=== PATIENT | male | born 1950 | race Caucasian/White ===

== ENCOUNTER 2017-11-18 07:28 | Outpatient (CLI) | payer MEDICARE ==
[2017-11-18 09:27] LABS: ALBUMIN/GLOBULIN RATIO 1.4 (1.0-2.2); BASOPHILS % (AUTO) 0.7 %; BILIRUBIN,TOTAL 0.9 mg/dL (0.2-1.0); CALCIUM 8.6 mg/dL (8.5-10.3); CREATININE 0.9 mg/dL (0.6-1.2); EOSINOPHILS # (AUTO) 0.1 10^3/uL (0.0-0.7); EOSINOPHILS % (AUTO) 1.6 %; HGB - HEMOGLOBIN 14.8 g/dL (14.0-18.0); LYMPHOCYTES # (AUTO) 1.6 10^3/uL (1.5-3.5); LYMPHOCYTES % (AUTO) 25.4 %; MEAN CORPUSCULAR HEMOGLOBIN 31.9 pg (27.0-31.0); MEAN CORPUSCULAR HGB CONC 34.1 g/dL (32.0-36.0); MEAN CORPUSCULAR VOLUME 93.3 fL (80.0-94.0); MEAN PLATELET VOLUME 7.7 fL (7.4-11.4); MONOCYTES # (AUTO) 0.6 10^3/uL (0.0-1.0); MONOCYTES % (AUTO) 9.4 %; NEUTROPHILS # (AUTO) 3.9 10^3/uL (1.5-6.6); NEUTROPHILS % (AUTO) 62.9 %; PLT - PLATELET COUNT 187 10^3/uL (130-450); RED BLOOD COUNT 4.66 10^6/uL (4.70-6.10); RED CELL DISTRIBUTION WIDTH 14.1 % (12.0-15.0); TOTAL PROTEIN 6.8 g/dL (6.7-8.2); WHITE BLOOD COUNT 6.3 x10^3/uL (4.8-10.8)
[2017-11-18 10:04] LABS: THYROID STIMULATING HORMONE 2.14 uIU/mL (0.34-5.60)
[2017-11-18 10:08] LABS: FREE T4 (FREE THYROXINE) 0.8 ng/dL (0.58-1.64)
[2017-11-18 15:28] LABS: BILIRUBIN,URINE NEGATIVE (NEGATIVE); GLUCOSE, URINE (UA) NEGATIVE (NEGATIVE); KETONES,URINE (UA) NEGATIVE (NEGATIVE); LEUKOCYTE ESTERASE, URINE NEGATIVE (NEGATIVE); NITRITE,URINE NEGATIVE (NEGATIVE); OCCULT BLOOD,URINE NEGATIVE (NEGATIVE); PH,URINE 5.5 PH (5.0-7.5); PROTEIN,URINE TRACE mg/dL (NEGATIVE); UROBILINOGEN,URINE 0.2 (NORMAL) E.U./dL (NORMAL)
[2017-11-18 15:30] LABS: CLARITY,URINE CLEAR (CLEAR)
== END 2017-11-18 07:29 | disposition home or self-care (01) ==
LOC: RT 07:28
PROVIDERS: ATTEND Internal Medicine Cardiovascular Disease
DX: I10 Essential (primary) hypertension (principal)
CPT/HCPCS: 36415; 80053; 81003; 82088; 82533; 84244; 84439; 84443; 85025; 93005

== ENCOUNTER 2017-12-16 07:38 | Outpatient (CLI) | payer MEDICARE ==
[2017-12-16 08:29] LABS: CALCIUM 9.2 mg/dL (8.5-10.3); CREATININE 0.9 mg/dL (0.6-1.2)
== END 2017-12-16 07:39 | disposition home or self-care (01) ==
LOC: LAB 07:38
PROVIDERS: ATTEND Internal Medicine Cardiovascular Disease
DX: I10 Essential (primary) hypertension (principal)
CPT/HCPCS: 36415; 80048

== ENCOUNTER 2018-01-12 09:42 | Outpatient (CLI) | payer MEDICARE ==
[2018-01-12 11:01] LABS: BUN - BLOOD UREA NITROGEN 12 mg/dL (6-20); CALCIUM 8.4 mg/dL (8.5-10.3); CARBON DIOXIDE - CO2 30 mmol/L (21-32); CHLORIDE 104 mmol/L (101-111); CHOL/HDL RATIO 4.1 (<5.0); CHOLESTEROL 172 mg/dL; CREATININE 0.9 mg/dL (0.6-1.2); CRP - C-REACTIVE PROTEIN 1.4 mg/dL (0-1.0); GFR - MDRD 84 (>89); GLUCOSE 130 mg/dL (70-100); HDL CHOLESTEROL 42 mg/dL; LDL CHOLESTEROL,CALCULATED 115 mg/dL; LDL/HDL RATIO 2.7 (<3.6); SODIUM 139 mmol/L (135-145); VLDL CHOLESTEROL 15 mg/dL
== END 2018-01-12 09:43 | disposition home or self-care (01) ==
LOC: LAB 09:42
PROVIDERS: ATTEND Internal Medicine Cardiovascular Disease
DX: I10 Essential (primary) hypertension (principal)
CPT/HCPCS: 36415; 80048; 80061; 81599; 82088; 83721; 83835; 84153; 84244; 86140; 86316

== ENCOUNTER 2018-02-07 09:11 | Outpatient (CLI) | payer MEDICARE, OTHER | END 2018-02-07 09:12 | disposition home or self-care (01) | LOC: DI 09:11 | PROVIDERS: ATTEND Internal Medicine Cardiovascular Disease | DX: I10 Essential (primary) hypertension (principal); I51.7 Cardiomegaly; I77.810 Thoracic aortic ectasia | CPT/HCPCS: 93306 ==

== ENCOUNTER 2018-08-04 09:19 | Outpatient (CLI) | payer MEDICARE, OTHER ==
[2018-08-04 09:41] LABS: CREATININE 0.9 mg/dL (0.6-1.2); URIC ACID 9.2 mg/dL (2.6-7.2)
== END 2018-08-04 09:20 | disposition home or self-care (01) ==
LOC: LAB 09:19
PROVIDERS: ATTEND Internal Medicine Cardiovascular Disease
DX: I10 Essential (primary) hypertension (principal)
CPT/HCPCS: 36415; 80048; 84550

== ENCOUNTER 2018-10-06 09:30 | Outpatient (CLI) | payer MEDICARE, OTHER ==
[2018-10-06 09:53] LABS: CALCIUM 8.7 mg/dL (8.5-10.3); CREATININE 1.1 mg/dL (0.6-1.2)
== END 2018-10-06 09:31 | disposition home or self-care (01) ==
LOC: LAB 09:30
PROVIDERS: ATTEND Internal Medicine Cardiovascular Disease
DX: I10 Essential (primary) hypertension (principal)
CPT/HCPCS: 36415; 80048

== ENCOUNTER 2018-10-25 09:40 | Emergency (ER) | payer MEDICARE, OTHER ==
[2018-10-25 09:54] VITALS: BP 160/87
--- NOTE | 2018-10-25 10:11 | ED Physician Documentation ---
PD HPI LOWER EXT INJURY - Stated complaint Stated Complaint: L FOOT PX - Chief complaint Chief Complaint: Ext Problem - History obtained from History obtained from: Patient - History of Present Illness PD HPI LOW EXT INJURY LOCATION: Left, Ankle Type of injury: Fall, Twist Where injury occurred: Home Timing - onset: How many days ago (2) Timing - duration: Days (2) Timing - details: Abrupt onset, Still present Improved by: Rest, Ice, Immobilization Worsened by: Moving, Palpating Associated symptoms: Swelling Similar symptoms before: Diagnosis (ankle sprain) Recently seen: Not recently seen - Additional information Additional information: 68-year-old male was in the garden working 2 days ago when he stepped in hole and twisted his ankle. He is not able to bear weight on the ankle and he is waited 2 days and continues to be having some difficulty and is come now for x- ray evaluation. Review of Systems Constitutional: denies: Fever Eyes: denies: Decreased vision Nose: denies: Congestion Respiratory: denies: Cough GI: denies: Nausea, Vomiting : denies: Dysuria Skin: denies: Rash Musculoskeletal: reports: Extremity pain, Extremity swelling, Pain with weight bearing. denies: Neck pain, Back pain Neurologic: denies: Generalized weakness, Focal weakness, Numbness PD PAST MEDICAL HISTORY - Present Medications Home Medications: Ambulatory Orders Medication Instructions Recorded Confirmed Apixaban [Eliquis] 5 mg PO 10/25/18 Eplerenone 50 mg PO 10/25/18 Losartan/Hydrochlorothiazide 10/25/18 [Losartan-Hctz 50-12.5 mg Tab] amLODIPine [Norvasc] 5 mg PO DAILY 10/25/18 10/25/18 - Allergies Allergies/Adverse Reactions: Allergies Allergy/AdvReac Type Severity Reaction Status Date / Time ketorolac [From Toradol] Allergy Anaphylaxis Verified 10/25/18 09:55 PD ED PE NORMAL - Vitals Vital signs reviewed: Yes (hypertensive ) - General General: Alert and oriented X 3, No acute distress, Well developed/nourished - HEENT HEENT: Atraumatic, PERRL - Respiratory Respiratory: No respiratory distress - Derm Derm: Normal color, Warm and dry, No rash - Extremities Extremities: Other (There is swelling and point tenderness to the lateral malleolus on the left foot over the talo-fibular ligament. There is no tenderness over the proximal 5th and the distal n/v is intact. ) - Neuro Neuro: Alert and oriented X 3, radiology equipment servicer 2-12 intact, No motor deficit, No sensory deficit, Normal speech Eye Opening: Spontaneous Motor: Obeys Commands Verbal: Oriented GCS Score: 15 - Psych Psych: Normal mood, Normal affect Results - Vitals Vitals: Vital Signs - 24 hr 10/25/18 09:52 Temperature 35.7 C L Heart Rate 71 Respiratory 14 Rate Blood Pressure 160/87 H O2 Saturation 100 Oxygen O2 Source Room air - Rads (name of study) ankle Radiology: Prelim report reviewed (Impression: 1. Anterior and medial left ankle soft tissue swelling. 2 No fracture, subluxation or ankle joint effusion. 3 Plantar and dorsal calcaneal spurs.), EMP read indepedently, See rad report PD MEDICAL DECISION MAKING - ED course Complexity details: reviewed results, re-evaluated patient, considered differential, d/w patient, d/w family ED course: 68-year-old male with a twist of his ankle has talofibular ligament strain and x-ray without evidence of fracture. He is placed into a ankle Aircast. Departure - Departure Disposition: 01 Home, Self Care Clinical Impression: Left ankle sprain Qualifiers: Encounter type: initial encounter Involved ligament of ankle: calcaneofibular ligament Qualified Code(s): S93.412A - Sprain of calcaneofibular ligament of left ankle, initial encounter Instructions: ED Sprain Ankle W X Ray Follow-Up: Lm Rossi MD [Primary Care Provider] -
--- NOTE | 2018-10-25 10:46 | XRAY Report ---
Reason: pain/swelling. injury Procedure Date: 10/25/2018 Accession Number: [id number] / [id number] Procedure: XR - Ankle 3 View LT CPT Code: FULL RESULT: EXAM: LEFT ANKLE RADIOGRAPHY EXAM DATE: 10/25/2018 10:41 AM. CLINICAL HISTORY: Acute left ankle pain and swelling status post trauma. COMPARISON: None. TECHNIQUE: 3 views. FINDINGS: Bones: Normal bone mineralization. No fractures or bone lesions. Plantar and dorsal calcaneal spurs. Joints: Normal. No effusion. No subluxations. The ankle mortise is normally aligned. Soft Tissues: Anterior and medial left ankle soft tissue swelling. IMPRESSION: 1. Anterior and medial left ankle soft tissue swelling. 2. No fracture, subluxation or ankle joint effusion. 3. Plantar and dorsal calcaneal spurs. RADIA
== END 2018-10-25 11:19 | disposition home or self-care (01) ==
LOC: ED 09:40
DX: S93.412A Sprain of calcaneofibular ligament of left ankle, initial encounter (principal); X50.1XXA Overexertion from prolonged static or awkward postures, initial encounter; Y93.H2 Activity, gardening and landscaping; Y92.007 Garden or yard of unspecified non-institutional (private) residence as the place of occurrence of the external cause; M77.32 Calcaneal spur, left foot
CPT/HCPCS: 99283

== ENCOUNTER 2018-11-18 09:01 | Outpatient (CLI) | payer MEDICARE, OTHER ==
[2018-11-18 09:18] LABS: CREATININE 1.2 mg/dL (0.6-1.2)
== END 2018-11-18 09:02 | disposition home or self-care (01) ==
LOC: LAB 09:01
PROVIDERS: ATTEND Internal Medicine Cardiovascular Disease
DX: I10 Essential (primary) hypertension (principal)
CPT/HCPCS: 36415; 80048

== ENCOUNTER 2019-01-04 10:55 | Outpatient (CLI) | payer MEDICARE, OTHER ==
--- NOTE | 2019-01-04 11:34 | XRAY Report ---
Reason: ACUTE PAIN EDEMA X 6DAYS POSTERIOR L CALCANEUS Procedure Date: 01/04/2019 Accession Number: [id number] / [id number] Procedure: XR - Calcaneus LT CPT Code: FULL RESULT: EXAM: LEFT CALCANEUS RADIOGRAPHY EXAM DATE: 01/04/2019 11:03 AM. CLINICAL HISTORY: Left calcaneal pain COMPARISON: ANKLE 3 VIEW LT 10/25/2018 10:25 AM. TECHNIQUE: 2 views. FINDINGS: Bones: No acute bony abnormality. Moderate posterior calcaneal bone spur. Small plantar bone spur. Joints: Normal. No subluxations. Soft Tissues: Normal. No soft tissue swelling. IMPRESSION: 1. No acute abnormality. 2. Calcaneal bone spurs as described above. RADIA
== END 2019-01-04 10:56 | disposition home or self-care (01) ==
LOC: DI 10:55
PROVIDERS: ATTEND Podiatrist
DX: M76.22 Iliac crest spur, left hip (principal)

== ENCOUNTER 2019-02-22 14:14 | Outpatient (CLI) | payer MEDICARE, OTHER ==
[2019-02-22 14:36] LABS: CALCIUM 8.7 mg/dL (8.5-10.3); CREATININE 1.2 mg/dL (0.6-1.2)
== END 2019-02-22 14:15 | disposition home or self-care (01) ==
LOC: LAB 14:14
PROVIDERS: ATTEND Internal Medicine Cardiovascular Disease
DX: I10 Essential (primary) hypertension (principal)
CPT/HCPCS: 36415; 80048

== ENCOUNTER 2019-05-03 10:47 | Outpatient (CLI) | payer MEDICARE, OTHER ==
[2019-05-03 11:42] LABS: CALCIUM 9.2 mg/dL (8.5-10.3); CREATININE 1.2 mg/dL (0.6-1.2)
== END 2019-05-03 10:48 | disposition home or self-care (01) ==
LOC: LAB 10:47
PROVIDERS: ATTEND Internal Medicine Cardiovascular Disease
DX: I15.2 Hypertension secondary to endocrine disorders (principal); E34.9 Endocrine disorder, unspecified
CPT/HCPCS: 36415; 80048

== ENCOUNTER 2019-08-02 13:48 | Outpatient (CLI) | payer MEDICARE, OTHER ==
[2019-08-02 14:22] LABS: CALCIUM 10.3 mg/dL (8.5-10.3); CREATININE 1.6 mg/dL (0.6-1.2)
== END 2019-08-02 13:49 | disposition home or self-care (01) ==
LOC: LAB 13:48
PROVIDERS: ATTEND Internal Medicine Cardiovascular Disease
DX: I10 Essential (primary) hypertension (principal)
CPT/HCPCS: 36415; 80048

== ENCOUNTER 2020-04-18 11:43 | Outpatient (CLI) | payer MEDICARE, OTHER ==
[2020-04-18 12:14] LABS: ALBUMIN 4.3 g/dL (3.2-5.5); ALBUMIN/GLOBULIN RATIO 1.4 (1.0-2.2); BILIRUBIN,TOTAL 1.2 mg/dL (0.2-1.0); CALCIUM 9.7 mg/dL (8.5-10.3); CREATININE 1.5 mg/dL (0.6-1.2); TOTAL PROTEIN 7.3 g/dL (6.7-8.2); URIC ACID 9.2 mg/dL (2.6-7.2)
== END 2020-04-18 11:44 | disposition home or self-care (01) ==
LOC: LAB 11:43
PROVIDERS: ATTEND Nurse Practitioner Family
DX: M10.9 Gout, unspecified (principal); I48.21 Permanent atrial fibrillation
CPT/HCPCS: 36415; 80053; 84550

== ENCOUNTER 2020-04-19 10:14 | Outpatient (CLI) | payer MEDICARE, OTHER ==
[2020-04-19 10:47] LABS: CHOL/HDL RATIO 3.4 (<5.0); CHOLESTEROL 177 mg/dL; HDL CHOLESTEROL 52 mg/dL; LDL CHOLESTEROL,CALCULATED 113 mg/dL; LDL/HDL RATIO 2.2 (<3.6); VLDL CHOLESTEROL 12 mg/dL
== END 2020-04-19 10:15 | disposition home or self-care (01) ==
LOC: LAB 10:14
PROVIDERS: ATTEND Internal Medicine Cardiovascular Disease
DX: I10 Essential (primary) hypertension (principal)
CPT/HCPCS: 36415; 80061; 83721

== ENCOUNTER 2020-12-30 07:32 | Emergency (ER) | payer MEDICARE, OTHER ==
[2020-12-30] MEDS ORDERED: LIDOCAINE 1%-EPI 1:100000 20 ML MDV SUBQ STA (08:07)
--- NOTE | 2020-12-30 08:11 | ED Physician Documentation ---
History of Present Illness - Stated complaint Stated Complaint: NOSE BLEED - Chief complaint Chief Complaint: Heent - History obtained from History obtained from: Patient - History of Present Illness Timing: Today Pain level max: 0 Pain level now: 0 - Additonal information Additional information: 70-year-old male presents to the emergency department with a nosebleed that started about 30 minutes prior to arrival. He is on Eliquis for atrial fibrillation. Denies any trauma. No fevers. No chills. No chest pain. No shortness of breath. Nothing makes it better or worse. Review of Systems Constitutional: denies: Fever, Chills GI: denies: Vomiting, Diarrhea Skin: denies: Rash Musculoskeletal: denies: Neck pain, Back pain Neurologic: denies: Headache PD PAST MEDICAL HISTORY - Past Medical History Past Medical History: Yes Cardiovascular: Hypertension, Deep vein thrombosis, Pulmonary embolism, Atrial fibrillation - Past Surgical History General: Cholecystectomy Ortho: Spine surgery HEENT: Cataracts - Present Medications Home Medications: Ambulatory Orders Medication Instructions Recorded Confirmed Apixaban [Eliquis] 5 mg PO 10/25/18 Eplerenone 50 mg PO 10/25/18 Losartan/Hydrochlorothiazide 10/25/18 [Losartan-Hctz 50-12.5 mg Tab] amLODIPine [Norvasc] 5 mg PO DAILY 10/25/18 10/25/18 cephALEXin [Keflex] 500 mg PO Q6H #12 cap 12/30/20 - Allergies Allergies/Adverse Reactions: Allergies Allergy/AdvReac Type Severity Reaction Status Date / Time ketorolac [From Toradol] Allergy Anaphylaxis Verified 12/30/20 07:51 - Social History Does the pt smoke?: No Smoking Status: Never smoker Does the pt drink ETOH?: Yes Does the pt have substance abuse?: No PD ED PE NORMAL - Vitals Vital signs reviewed: Yes - General General: Alert and oriented X 3, No acute distress - HEENT HEENT: Moist mucous membranes, Other (Epistaxis from the left nare. Unable to visualize source of bleeding.) - Neck Neck: Supple, no meningeal sign - Cardiac Cardiac: RRR - Respiratory Respiratory: No respiratory distress, Clear bilaterally - Abdomen Abdomen: Soft, Non tender, Non distended - Derm Derm: Warm and dry - Neuro Neuro: Alert and oriented X 3 - Psych Psych: Normal mood Results - Vitals Vitals: Vital Signs - 24 hr 12/30/20 12/30/20 12/30/20 07:48 07:56 09:06 Temperature 36.4 C L 36.4 C L Heart Rate 91 89 61 Respiratory 16 17 19 Rate Blood Pressure 215/107 H 215/107 H 143/70 H O2 Saturation 100 98 100 Oxygen O2 Source Room air Procedures - Epistaxis Site: Left, Cannot determine Preparation: Clots removed, Lidocaine (With epinephrine), Clamp / pressure applied Treatment: Anterior rhinorocket Other: Observed - no bleeding, Pt tolerated well, O2 sat WNL, Antibiotics prescribed PD MEDICAL DECISION MAKING - ED course Complexity details: reviewed results, re-evaluated patient, considered differential, d/w patient, d/w family ED course: Packing was placed. Patient tolerated well. No further bleeding. We will leave the packing in place for 2 to 3 days. He can continue his Eliquis at home. We will have him follow-up with his doctor for removal of the packing. Patient and family counseled regarding signs and symptoms for which I believe and urgent re-evaluation would be necessary. Patient with good understanding of and agreement to plan and is comfortable going home at this time This document was made in part using voice recognition software. While efforts are made to proofread this document, sound alike and grammatical errors may occur. Departure - Departure Disposition: 01 Home, Self Care Clinical Impression: Epistaxis, Anticoagulant effect Condition: Good Instructions: ED Nasal Packing Anterior Removable Follow-Up: Lm Rossi MD [Primary Care Provider] - Prescriptions: cephALEXin [Keflex] 500 mg PO Q6H #12 cap Comments: The packing can be removed in 3 days. This can be done with your doctor. Return if you worsen. Stay on the Keflex until the packing is removed. Discharge Date/Time: 12/30/20 09:06
[2020-12-30 09:08] VITALS: BP 143/70
== END 2020-12-30 09:06 | disposition home or self-care (01) ==
LOC: ED 07:32
DX: R04.0 Epistaxis (principal); T45.515A Adverse effect of anticoagulants, initial encounter; I48.91 Unspecified atrial fibrillation; Z79.01 Long term (current) use of anticoagulants; I10 Essential (primary) hypertension
CPT/HCPCS: 30901; 99282; 99283

== ENCOUNTER 2021-01-01 07:40 | Emergency (ER) | payer MEDICARE, OTHER ==
[2021-01-01 07:49] VITALS: BP 127/76
--- NOTE | 2021-01-01 07:55 | ED Physician Documentation ---
History of Present Illness - Stated complaint Stated Complaint: FOLLOW UP VISIT - Chief complaint Chief Complaint: General - History obtained from History obtained from: Patient - Additonal information Additional information: 70-year-old gentleman returns for anterior nasal packing removal. His business segment manager recommended that he stop his DOAC for 3 days. He has not had any issues but is eager to get the packing out. Review of Systems Constitutional: denies: Fever, Chills Eyes: denies: Loss of vision, Decreased vision Ears: reports: Reviewed and negative PD PAST MEDICAL HISTORY - Past Medical History Past Medical History: Yes Cardiovascular: Hypertension, Deep vein thrombosis, Pulmonary embolism Respiratory: None Neuro: None Endocrine/Autoimmune: None GI: None : None HEENT: None Psych: None Musculoskeletal: None Derm: None - Past Surgical History General: Cholecystectomy Ortho: Spine surgery HEENT: Cataracts - Present Medications Home Medications: Ambulatory Orders Medication Instructions Recorded Confirmed Apixaban [Eliquis] 5 mg PO 10/25/18 Eplerenone 50 mg PO 10/25/18 Losartan/Hydrochlorothiazide 10/25/18 [Losartan-Hctz 50-12.5 mg Tab] amLODIPine [Norvasc] 5 mg PO DAILY 10/25/18 10/25/18 cephALEXin [Keflex] 500 mg PO Q6H #12 cap 12/30/20 - Allergies Allergies/Adverse Reactions: Allergies Allergy/AdvReac Type Severity Reaction Status Date / Time ketorolac [From Toradol] Allergy Anaphylaxis Verified 01/01/21 07:48 - Social History Does the pt smoke?: No Smoking Status: Never smoker Does the pt drink ETOH?: Yes Does the pt have substance abuse?: No - Immunizations Immunizations are current?: Yes - POLST Patient has POLST: No PD ED PE NORMAL - Vitals Vital signs reviewed: Yes - General General: Alert and oriented X 3, No acute distress - HEENT HEENT: Other (Left-sided anterior Rhino Rocket in place which was removed. T here is minimal to no blood on it. No bleeding status post removal.) - Neuro Neuro: Alert and oriented X 3, Normal speech Results - Vitals Vitals: Vital Signs - 24 hr 01/01/21 07:44 Temperature 36.6 C Heart Rate 62 Respiratory 15 Rate Blood Pressure 127/76 O2 Saturation 99 Oxygen O2 Source Room air Departure - Departure Disposition: 01 Home, Self Care Clinical Impression: Epistaxis, Anticoagulant effect Condition: Good Record reviewed to determine appropriate education?: Yes Instructions: ED Nasal Packing Anterior Removable Comments: Return as needed for recurrent symptoms. You can stop the antibiotics now that the packing is out.
== END 2021-01-01 08:03 | disposition home or self-care (01) ==
LOC: ED 07:40
DX: Z48.00 Encounter for change or removal of nonsurgical wound dressing (principal); R04.0 Epistaxis; I10 Essential (primary) hypertension; Z86.718 Personal history of other venous thrombosis and embolism; Z79.01 Long term (current) use of anticoagulants
CPT/HCPCS: 99281; 99282

== ENCOUNTER 2021-05-13 08:42 | Outpatient (CLI) | payer MEDICARE, OTHER ==
[2021-05-13 09:24] LABS: BUN - BLOOD UREA NITROGEN 25 mg/dL (6-20); CALCIUM 9.2 mg/dL (8.5-10.3); CARBON DIOXIDE - CO2 27 mmol/L (21-32); CHLORIDE 100 mmol/L (101-111); CHOLESTEROL 212 mg/dL; CREATININE 1.3 mg/dL (0.6-1.2); GFR - MDRD 55 (>89); GLUCOSE 127 mg/dL (70-100); HDL CHOLESTEROL 42 mg/dL; LDL CHOLESTEROL,CALCULATED 146 mg/dL; LDL/HDL RATIO 3.5 (<3.6); POTASSIUM 4.4 mmol/L (3.5-5.0); SODIUM 135 mmol/L (135-145); TRIGLYCERIDES 121 mg/dL; VLDL CHOLESTEROL 24 mg/dL
== END 2021-05-13 08:43 | disposition home or self-care (01) ==
LOC: LAB 08:42
PROVIDERS: ATTEND Internal Medicine Cardiovascular Disease
DX: I10 Essential (primary) hypertension (principal)
CPT/HCPCS: 36415; 80048; 80061; 83721

== ENCOUNTER 2021-05-24 11:22 | Emergency (ER) | payer MEDICARE, OTHER ==
--- NOTE | 2021-05-24 12:07 | XRAY Report ---
PROCEDURE: Knee 4 View LT INDICATIONS: Trauma TECHNIQUE: 4 views of the left knee(s) were acquired. COMPARISON: None. FINDINGS: Bones: No fractures or dislocations. No suspicious bony lesions. Joint spaces are maintained. Mild tricompartment osteophytosis. Soft tissues: Moderate joint effusion. Vascular calcifications noted throughout the leg. Mild soft ti ssue prominence/swelling noted within the anterior knee IMPRESSION: No acute osseous abnormality. Moderate joint effusion. Soft tissue swelling in the anterior knee. Reviewed by: Navid Tipton DO on 05/24/2021 11:06 AM MARLYS Approved by: Navid Tipton DO on 05/24/2021 11:06 AM MARLYS Station ID: [id number]
--- NOTE | 2021-05-24 12:23 | ED Physician Documentation ---
History of Present Illness - Stated complaint Stated Complaint: LT KNEE PX - Chief complaint Chief Complaint: Ext Problem - Additonal information Additional information: 71-year-old male who has a history of previous gouty arthritis presents the emergency department for evaluation of 3 days acute left knee pain. Began when he was working on his tractor and kneeling on the left knee. He thinks he may have been kneeling on a hard pebble or rock. Since then he has had some swelling of the knee difficulty bearing weight and bending it. There have been no fevers. He has a history of atrial fibrillation and is on Eliquis. He also has colchicine which he uses for gout flares. He also has a prescription for allopurinol but does not like taking more medication than he needs to. He reports that steroids in the past because atrial fibrillation flares and he requests that those not be prescribed. He has had no fevers or falls or trauma. This feels similar to previous flares of gout which she has had in this knee as well as the left foot. Review of Systems Constitutional: reports: Reviewed and negative Eyes: reports: Reviewed and negative Ears: reports: Reviewed and negative Nose: reports: Reviewed and negative Throat: reports: Reviewed and negative Cardiac: reports: Reviewed and negative : reports: Reviewed and negative Skin: reports: Reviewed and negative Musculoskeletal: reports: Joint swelling (left knee) PD PAST MEDICAL HISTORY - Past Medical History Cardiovascular: Hypertension, Deep vein thrombosis, Pulmonary embolism Respiratory: None Neuro: None Endocrine/Autoimmune: None GI: None : None HEENT: None Psych: None Musculoskeletal: None Derm: None - Past Surgical History General: Cholecystectomy Ortho: Spine surgery HEENT: Cataracts - Present Medications Home Medications: Ambulatory Orders Medication Instructions Recorded Confirmed Apixaban [Eliquis] 5 mg PO 10/25/18 Eplerenone 50 mg PO 10/25/18 Losartan/Hydrochlorothiazide 10/25/18 [Losartan-Hctz 50-12.5 mg Tab] amLODIPine [Norvasc] 5 mg PO DAILY 10/25/18 10/25/18 cephALEXin [Keflex] 500 mg PO Q6H #12 cap 12/30/20 Oxycodone HCl/Acetaminophen 1 - 2 each PO Q6H PRN #14 tablet 05/24/21 [Percocet 5-325 mg Tablet] - Allergies Allergies/Adverse Reactions: Allergies Allergy/AdvReac Type Severity Reaction Status Date / Time ketorolac [From Toradol] Allergy Anaphylaxis Verified 05/24/21 11:36 - Social History Does the pt smoke?: No Smoking Status: Never smoker Does the pt drink ETOH?: Yes Does the pt have substance abuse?: No - Immunizations Immunizations are current?: Yes - POLST Patient has POLST: No PD ED PE EXPANDED - General General: Alert, No acute distress - Extremities Extremities: Left knee (Mild swelling noted of the knee especially superior to the patella. No laxity. No erythema or open sores or lesions. NO Micromotion tenderness. Patient is able to bear nearly full weight though he has difficulty ambulating directly on the leg.) Results - Vitals Vitals: Vital Signs - 24 hr 05/24/21 11:32 Temperature 36.1 C L Heart Rate 72 Respiratory 18 Rate Blood Pressure 124/68 O2 Saturation 96 Oxygen O2 Source Room air - Rads (name of study) left knee Radiology: Final report received (No fracture or dislocation. Generalized joint effusion) PD MEDICAL DECISION MAKING - ED course Complexity details: re-evaluated patient, considered differential, d/w patient ED course: 71-year-old male here with acute left knee pain after kneeling on it approximately 3 days ago. He has a history of gout. X-ray does show moderate joint effusion which is palpable on exam. No fevers or micromotion tenderness no open sores or lesions. Low suspicion for septic arthritis. Patient has started a colchicine regimen for what he suspects is a gout flare and is requesting a uric acid level today. He is also requesting additional pain medi cations which I will write a prescription for. Patient was given an Ck wrap which he felt improved some of the pain he is encouraged to wear this at all times. Request close follow-up with PCP as well as orthopedics. Emergent return precautions discussed for concerns of infection or worsening symptoms. Departure - Departure Disposition: 01 Home, Self Care Clinical Impression: Effusion, left knee, History of gout Left knee pain Qualifiers: Chronicity: acute Qualified Code(s): M25.562 - Pain in left knee Condition: Stable Record reviewed to determine appropriate education?: Yes Follow-Up: Miguel Duffy MD [Provider Admit Priv/Credential] - Lm Rossi MD [Primary Care Provider] - Prescriptions: Oxycodone HCl/Acetaminophen [Percocet 5-325 mg Tablet] 1 - 2 each PO Q6H PRN #14 tablet PRN Reason: pain Comments: Lm you are seen in the emergency department today for pain in your left knee. The x-ray does show a small effusion around the knee joint which is quite some inflammatory processes. We are sending a uric acid level. And will call you later today with results. You can otherwise with them up on your [employer] portal. Please continue to wear the Ck wrap when out of bed. I recommend that you continue to take the colchicine and when appropriate then begin taking the allopurinol which is the suppressant medication to prevent gout flares. I am sending a limited prescription to [facility] in [place] for Percocet or oxycodone to help with your acute pain. I do encourage you to use crutches when ambulating over the next few days. Please continue close follow-up with Dr. Rossi as well as our orthopedics office. Return to the ER if you develop fevers, have red streaking, worsening pain. I am prescribing a short course of narcotic pain medication for you. These are potentially dangerous and addictive medications that should be used carefully. These medications may constipate you. Take an xnfv-bhe-xeidutz stool softener (docusate) twice daily with plenty of water while taking these medications. If you go 24 hours without a bowel movement, take [id number] miralax, per package instructions. Do not drink or drive while taking these medications. If you received narcotic or sedating medications while in the emergency department, do not drive for 24 hours. Store this medication in a safe, secure place and out of reach of children. It is a violation of federal law to give or sell this medication to another person or to use in a manner other than prescribed. The ED will not refill narcotic prescriptions, including prescriptions lost or stolen. To dispose of unwanted medications: 1. [facility] at [address] in [place] has a medication drop box. They accept prescription medications (in pill form) Wednesday through Wednesday 9:00 a.m. to 5:00 p.m. 2. The [facility] accepts prescription medications (in pill form only) for disposal year round. Call for more information. 3. Contact the [facility] for the next [facility] sponsored prescription drug collection event. , [phone], or [phone]; Note that many narcotic pain relievers also contain Tylenol/acetaminophen. Please ensure that your total dose of acetaminophen from all sources does not exceed 3 g (3000 mg) per day.
[2021-05-24 12:39] VITALS: BP 133/70
== END 2021-05-24 12:39 | disposition home or self-care (01) ==
LOC: ED 11:22
DX: M25.562 Pain in left knee (principal); M25.462 Effusion, left knee; Z87.39 Personal history of other diseases of the musculoskeletal system and connective tissue
CPT/HCPCS: 36415; 84550; 99283; 99284

== ENCOUNTER 2021-06-16 23:02 | Emergency (ER) | payer MEDICARE, OTHER ==
--- NOTE | 2021-06-16 23:38 | ED Physician Documentation ---
PD HPI DYSPNEA - Stated complaint Stated Complaint: SOA - Chief complaint Chief Complaint: Resp - History obtained from History obtained from: Patient - History of Present Illness Timing - onset: Today Timing - onset during: Light activity Timing - duration: Hours Timing - details: Gradual onset Pain level max: 0 Pain level now: 0 Improved by: Rest Worsened by: Exertion, Coughing Associated symptoms: No: Fever, Cough, Hemoptysis, Wheezing, Chest pain / discomfort, Bilateral edema, Unilateral edema Similar symptoms before: Has not had sx before Recently seen: Emergency Dept - Additional information Additional information: c/o dyspnea since this afternoon, gradual onset without particular inciting event, steadily progressive. He denies h/o similar symptom and denies h/o respiratory/pulmonary diagnoses (denies COPD, emphysema, asthma; he has had viral pnuemonia in the past). He is COVID vaccinated. Denies fevers. Denies cough. Denies chest pain. His prescription medications include Eliquis which he takes for chronic atrial fibrillation. He completed a six-day course of prednisone yesterday for gouty arthritis. Review of Systems Constitutional: reports: Reviewed and negative Cardiac: denies: Chest pain / pressure, Palpitations, Pedal edema, Calf pain Respiratory: reports: Dyspnea. denies: Cough, Hemoptysis, Wheezing GI: reports: Reviewed and negative PD PAST MEDICAL HISTORY - Past Medical History Past Medical History: Yes Cardiovascular: Hypertension, Deep vein thrombosis, Pulmonary embolism, Atrial fibrillation Respiratory: None Neuro: None Endocrine/Autoimmune: None GI: None : None HEENT: None Psych: None Musculoskeletal: None Derm: None - Past Surgical History Past Surgical History: Yes General: Cholecystectomy Ortho: Spine surgery HEENT: Cataracts - Present Medications Home Medications: Ambulatory Orders Medication Instructions Recorded Confirmed Apixaban [Eliquis] 5 mg PO 10/25/18 Eplerenone 50 mg PO 10/25/18 Losartan/Hydrochlorothiazide 10/25/18 [Losartan-Hctz 50-12.5 mg Tab] amLODIPine [Norvasc] 5 mg PO DAILY 10/25/18 10/25/18 cephALEXin [Keflex] 500 mg PO Q6H #12 cap 12/30/20 Oxycodone HCl/Acetaminophen 1 - 2 each PO Q6H PRN #14 tablet 05/24/21 [Percocet 5-325 mg Tablet] Albuterol Sulf [Ventolin Hfa 1 - 2 puffs INH Q4HR PRN #1 inhaler 06/17/21 Inhaler] Azithromycin 250 mg PO DAILY #4 tablet 06/17/21 - Allergies Allergies/Adverse Reactions: Allergies Allergy/AdvReac Type Severity Reaction Status Date / Time ketorolac [From Toradol] Allergy Anaphylaxis Verified 06/16/21 23:17 - Social History Does the pt smoke?: No Smoking Status: Never smoker Does the pt drink ETOH?: Yes Does the pt have substance abuse?: No - Immunizations Immunizations are current?: Yes - POLST Patient has POLST: No PD ED PE NORMAL - Vitals Vital signs reviewed: Yes - General General: Alert and oriented X 3, No acute distress, Well developed/nourished - Neck Neck: Supple, no meningeal sign - Cardiac Cardiac: No murmur - Respiratory Respiratory: No respiratory distress - Extremities Extremities: No edema PD ED PE EXPANDED - Cardiac Cardiac: Irregularly irregular - Respiratory Respiratory: Decreased breath sounds, Right lower lobe (rhonchi) Results - Vitals Vitals: Oxygen O2 Source Room air - EKG (time done) No standard instances Rate: Rate (enter#) (105) Rhythm: Atrial fibrillation [place]: RAD Ischemia: Normal ST segments, Q waves (V1-V5) - Labs Labs: Laboratory Tests 06/16/21 06/16/21 06/16/21 23:27 23:27 23:27 WBC 15.2 H RBC 4.58 L Hgb 14.7 Hct 44.1 MCV 96.3 H MCH 32.1 H MCHC 33.3 RDW 12.6 Plt Count 263 MPV 10.1 Neut # (Auto) 12.1 H Lymph # (Auto) 1.6 [place] # (Auto) 1.3 H Eos # (Auto) 0.1 Baso # (Auto) 0.1 Absolute Nucleated RBC 0.00 Nucleated RBC % 0.0 PT 14.1 H INR 1.3 H APTT 30.7 D-Dimer 224.7 Sodium 138 Potassium 4.3 Chloride 102 Carbon Dioxide 24 Anion Gap 12.0 BUN 19 Creatinine 1.1 Estimated GFR (MDRD) 66 L Glucose 135 H Lactic Acid Calcium 9.2 Total Bilirubin 0.7 AST 39 ALT 104 H Alkaline Phosphatase 69 Troponin I High Sens B-Natriuretic Peptide Total Protein 7.1 Albumin 4.2 Globulin 2.9 Albumin/Globulin Ratio 1.4 Lipase 29 Nasal Adenovirus (PCR) Nasal B. parapertussis DNA (PCR) Nasal Coronavir 229E PCR Nasal Coronavir HKU1 PCR Nasal Coronavir NL63 PCR Nasal Coronavir OC43 PCR Nasal Enterovir/Rhinovir PCR Nasal Influenza B PCR Nasal Influenza A PCR Nasal Parainfluen 1 PCR Nasal Parainfluen 2 PCR Nasal Parainfluen 3 PCR Nasal Parainfluen 4 PCR Nasal RSV (PCR) Nasal B.pertussis DNA PCR Nasal C.pneumoniae (PCR) Federico Human Metapneumo PCR Nasal M.pneumoniae (PCR) Nasal SARS-CoV-2 (PCR) 06/16/21 06/16/21 06/17/21 23:27 23:27 00:33 WBC RBC Hgb Hct MCV MCH MCHC RDW Plt Count MPV Neut # (Auto) Lymph # (Auto) [place] # (Auto) Eos # (Auto) Baso # (Auto) Absolute Nucleated RBC Nucleated RBC % PT INR APTT D-Dimer Sodium Potassium Chloride Carbon Dioxide Anion Gap BUN Creatinine Estimated GFR (MDRD) Glucose Lactic Acid 1.3 Calcium Total Bilirubin AST ALT Alkaline Phosphatase Troponin I High Sens 341.1 H* B-Natriuretic Peptide 573 H Total Protein Albumin Globulin Albumin/Globulin Ratio Lipase Nasal Adenovirus (PCR) Nasal B. parapertussis DNA (PCR) Nasal Coronavir 229E PCR Nasal Coronavir HKU1 PCR Nasal Coronavir NL63 PCR Nasal Coronavir OC43 PCR Nasal Enterovir/Rhinovir PCR Nasal Influenza B PCR Nasal Influenza A PCR Nasal Parainfluen 1 PCR Nasal Parainfluen 2 PCR Nasal Parainfluen 3 PCR Nasal Parainfluen 4 PCR Nasal RSV (PCR) Nasal B.pertussis DNA PCR Nasal C.pneumoniae (PCR) Federico Human Metapneumo PCR Nasal M.pneumoniae (PCR) Nasal SARS-CoV-2 (PCR) 06/17/21 06/17/21 00:33 01:29 WBC RBC Hgb Hct MCV MCH MCHC RDW Plt Count MPV Neut # (Auto) Lymph # (Auto) [place] # (Auto) Eos # (Auto) Baso # (Auto) Absolute Nucleated RBC Nucleated RBC % PT INR APTT D-Dimer Sodium Potassium Chloride Carbon Dioxide Anion Gap BUN Creatinine Estimated GFR (MDRD) Glucose Lactic Acid Calcium Total Bilirubin AST ALT Alkaline Phosphatase Troponin I High Sens 346.3 H* B-Natriuretic Peptide Total Protein Albumin Globulin Albumin/Globulin Ratio Lipase Nasal Adenovirus (PCR) NOT DETECTED Nasal B. parapertussis DNA (PCR) NOT DETECTED Nasal Coronavir 229E PCR NOT DETECTED Nasal Coronavir HKU1 PCR NOT DETECTED Nasal Coronavir NL63 PCR NOT DETECTED Nasal Coronavir OC43 PCR NOT DETECTED Nasal Enterovir/Rhinovir PCR NOT DETECTED Nasal Influenza B PCR NOT DETECTED Nasal Influenza A PCR NOT DETECTED Nasal Parainfluen 1 PCR NOT DETECTED Nasal Parainfluen 2 PCR NOT DETECTED Nasal Parainfluen 3 PCR NOT DETECTED Nasal Parainfluen 4 PCR NOT DETECTED Nasal RSV (PCR) NOT DETECTED Nasal B.pertussis DNA PCR NOT DETECTED Nasal C.pneumoniae (PCR) NOT DETECTED Federico Human Metapneumo PCR NOT DETECTED Nasal M.pneumoniae (PCR) NOT DETECTED Nasal SARS-CoV-2 (PCR) NOT DETECTED - Rads (name of study) chest xray Radiology: Prelim report reviewed, See rad report PD MEDICAL DECISION MAKING - ED course Complexity details: reviewed results, re-evaluated patient, considered differential, d/w patient ED course: dyspnea of gradual onset earlier today which is a new symptom for him. although afebrile, he has mild leukocytosis and CXR suggests RLL infiltrate (correlates with physical exam findings on lung auscultation). He is given rocephin and zithromax, with rx zithromax to complete 5 day course for presumed bacterial pneumonia. he is given a duoneb in ED and on reevalution he has markedly improved aeration on auscultation and he reports resolution of his dyspnea (his chief complaint). He has modestly elevated hs-tNi but no EKG changes nor symptoms particularly suggestive of angina (such as chest pain , diaphoresis, nausea; his chief and only c/o is dyspnea). A 2-hour repeat hs-tNi demonstrates no significant change from initial result. Results d/w patient. We discussed that he is being treated empirically for pneumonia, although this is not a definitive diagnosis, and we discussed need for return if worse, but follow up with PMD even if improved, as other pathology, though less likely, could yield these symptoms and test results (such as malignancy). Departure - Departure Disposition: 01 Home, Self Care Clinical Impression: Pneumonia Qualifiers: Pneumonia type: due to unspecified organism Laterality: right Lung location: lower lobe of lung Qualified Code(s): J18.9 - Pneumonia, unspecified organism Condition: Good Instructions: ED Pneumonia Adult Follow-Up: Lm Rossi MD [Primary Care Provider] - Within 1 week Prescriptions: Albuterol Sulf [Ventolin Hfa Inhaler] 1 - 2 puffs INH Q4HR PRN #1 inhaler PRN Reason: Shortness Of Air/Wheezing Azithromycin 250 mg PO DAILY #4 tablet Comments: Your chest xray appears consistent with a pneumonia in the lower lobe of your right lung. Prescriptions for an antibiotic (azithromycin) and an inhaler (albuterol) have been electronically submitted to the [facility] pharmacy in [place]. You should feel improvement in your symptoms within 2-3 days of the antibiotic, although it can take longer for the symptoms to resolve completely. Follow up with your primary care provider within one week for reassessment; further testing might be necessary to ensure the xray findings are improving or cleared. Discharge Date/Time: 06/17/21 02:31
[2021-06-16] MEDS ORDERED: IPRATROPIUM/ALBUTEROL 3 ML NEB INH STA (23:53)
[2021-06-17 00:02] LABS: BASOPHILS # (AUTO) 0.1 10^3/uL (0.0-0.1); BASOPHILS % (AUTO) 0.5 %; EOSINOPHILS # (AUTO) 0.1 10^3/uL (0.0-0.7); EOSINOPHILS % (AUTO) 0.5 %; HCT - HEMATOCRIT 44.1 % (42.0-52.0); HGB - HEMOGLOBIN 14.7 g/dL (14.0-18.0); LYMPHOCYTES # (AUTO) 1.6 10^3/uL (1.5-3.5); LYMPHOCYTES % (AUTO) 10.8 %; MEAN CORPUSCULAR HEMOGLOBIN 32.1 pg (27.0-31.0); MEAN CORPUSCULAR HGB CONC 33.3 g/dL (32.0-36.0); MEAN CORPUSCULAR VOLUME 96.3 fL (80.0-94.0); MEAN PLATELET VOLUME 10.1 fL (7.4-11.4); MONOCYTES # (AUTO) 1.3 10^3/uL (0.0-1.0); MONOCYTES % (AUTO) 8.7 %; NEUTROPHILS # (AUTO) 12.1 10^3/uL (1.5-6.6); NEUTROPHILS % (AUTO) 79.1 %; PLT - PLATELET COUNT 263 10^3/uL (130-450); RED BLOOD COUNT 4.58 10^6/uL (4.70-6.10); RED CELL DISTRIBUTION WIDTH 12.6 % (12.0-15.0); WHITE BLOOD COUNT 15.2 x10^3/uL (4.8-10.8)
[2021-06-17 00:14] LABS: ALBUMIN 4.2 g/dL (3.2-5.5); ALBUMIN/GLOBULIN RATIO 1.4 (1.0-2.2); BILIRUBIN,TOTAL 0.7 mg/dL (0.2-1.0); CALCIUM 9.2 mg/dL (8.5-10.3); CREATININE 1.1 mg/dL (0.6-1.2); INR 1.3 (0.8-1.2); POTASSIUM 4.3 mmol/L (3.5-5.0); PT - PROTHROMBIN TIME 14.1 secs (9.9-12.6); TOTAL PROTEIN 7.1 g/dL (6.7-8.2)
[2021-06-17 00:22] LABS: PARTIAL THROMBOPLASTIN TIME 30.7 secs (24.9-33.3)
--- NOTE | 2021-06-17 00:26 | XRAY Report ---
PROCEDURE: Chest 2 View X-Ray INDICATIONS: dyspnea TECHNIQUE: 2 view(s) of the chest. COMPARISON: None. FINDINGS: Surgical changes and devices: None. Lungs and pleura: No pleural effusions or pneumothorax. Mild airspace opacity within the right lung base. Mediastinum: Mediastinal contours are normal. Heart size is normal. Bones and chest wall: No suspicious bony abnormalities. Soft tissues appear unremarkable. IMPRESSION: Right lung base pneumonia. Follow-up PA and lateral chest x-rays or chest CT is recommen ded to ensure resolution, and to exclude underlying neoplasm. Reviewed by: rByant Bingham MD on 06/17/2021 12:24 AM PST Approved by: Bryant Bingham MD on 06/17/2021 12:24 AM [facility] Station ID: [id number]
[2021-06-17 00:28] LABS: D-DIMER 224.7 ng/mL (200.0-255.0)
[2021-06-17] MEDS ORDERED: cefTRIAXone 1 GM in SODIUM CHLORIDE 0.9% MINIBAG 100 ML IV STA (01:27)
[2021-06-17] MEDS ORDERED: AZITHROMYCIN INJ 500 MG in SODIUM CHLORIDE 0.9% 250 ML IV STA (01:27)
[2021-06-17 01:34] LABS: B. PARAPERTUSSIS- RESP PCR PAN NOT DETECTED; B. PERTUSSIS- RESP PCR PANEL NOT DETECTED; C. PNEUMONIAE- RESP PCR PANEL NOT DETECTED; CORONAVIRUS 229E-RESP PCR NOT DETECTED; CORONAVIRUS HKU1-RESP PCR NOT DETECTED; CORONAVIRUS NL63-RESP PCR NOT DETECTED; CORONAVIRUS OC43-RESP PCR NOT DETECTED; HUMAN METAPNEUMOVIRUS NOT DETECTED; INFLUENZA A- RESP PCR PANEL NOT DETECTED; INFLUENZA B - RESP PCR PANEL NOT DETECTED; M. PNEUMONIAE- RESP PCR PANEL NOT DETECTED; PARAINFLUENZA VIRUS 1 NOT DETECTED; PARAINFLUENZA VIRUS 2 NOT DETECTED; PARAINFLUENZA VIRUS 3 NOT DETECTED; PARAINFLUENZA VIRUS 4 NOT DETECTED; RHINOVIRUS/ENTEROVIRUS NOT DETECTED; RSV- RESP PCR PANEL NOT DETECTED; SARS-CoV-2 -RESP PCR PANEL NOT DETECTED
[2021-06-17] MEDS ORDERED: cefTRIAXone 1 GM VIAL ONE (01:37)
[2021-06-17 02:04] VITALS: BP 125/89
[2021-06-17] MEDS ORDERED: AZITHROMYCIN 250 MG TABLET PO STA (02:13)
== END 2021-06-17 02:31 | disposition home or self-care (01) ==
LOC: ED 23:02
DX: J18.9 Pneumonia, unspecified organism (principal); I48.20 Chronic atrial fibrillation, unspecified; Z79.01 Long term (current) use of anticoagulants; I10 Essential (primary) hypertension; Z86.718 Personal history of other venous thrombosis and embolism; I26.99 Other pulmonary embolism without acute cor pulmonale; Z20.822 Contact with and (suspected) exposure to COVID-19
CPT/HCPCS: 36415; 71046; 80053; 83605; 83690; 83880; 84484; 85025; 85379; 85610; 85730; 87631; 93005; 94640; 94664; 96365; 99283; 99284; A9270; 0202U

== ENCOUNTER 2021-07-04 09:20 | Outpatient (CLI) | payer MEDICARE, OTHER | END 2021-07-04 09:21 | disposition home or self-care (01) | LOC: LAB 09:20 | PROVIDERS: ATTEND Nurse Practitioner Family | DX: M10.9 Gout, unspecified (principal); Z85.46 Personal history of malignant neoplasm of prostate | CPT/HCPCS: 36415; 84153; 84550 ==

== ENCOUNTER 2021-08-18 10:02 | Outpatient (CLI) | payer MEDICARE | END 2021-08-18 10:03 | disposition home or self-care (01) | LOC: LAB 10:02 | PROVIDERS: ATTEND Internal Medicine | DX: M10.9 Gout, unspecified (principal) | CPT/HCPCS: 36415; 84550 ==

== ENCOUNTER 2021-08-18 10:07 | Outpatient (CLI) | payer MEDICARE ==
--- NOTE | 2021-08-18 11:48 | XRAY Report ---
PROCEDURE: Chest 2 View X-Ray INDICATIONS: PNEUMONIA UNSPECIFIED ORGANISM TECHNIQUE: 2 view(s) of the chest. COMPARISON: Chest x-ray 06/17/2020 FINDINGS: Surgical changes and devices: None. Lungs and pleura: Previous appearance of right basilar opacity demonstrates near complete interval re solution. Mediastinum: Mediastinal contours are normal. Heart size is enlarged. Bones and chest wall: No suspicious bony abnormalities. Soft tissues appear unremarkable. IMPRESSION: Near complete interval resolution of previous right basilar opacity. Interval follow-up is recommended. Reviewed by: Keila Muhammad MD on 08/18/2021 11:47 AM [facility] Approved by: Keila Muhammad MD on 08/18/2021 11:47 AM [facility] Station ID: [id number]
== END 2021-08-18 10:08 | disposition home or self-care (01) ==
LOC: DI 10:07
PROVIDERS: ATTEND Internal Medicine
DX: J18.9 Pneumonia, unspecified organism (principal); M10.9 Gout, unspecified
CPT/HCPCS: 36415; 84550

== ENCOUNTER 2022-06-29 12:16 | Emergency (ER) | payer MEDICARE, OTHER ==
[2022-06-29] MEDS ORDERED: HYDROcod/ACETAM 5/325 MG TABLET PO STA (13:26)
[2022-06-29] MEDS ORDERED: NIRMATRELVIR/RITONAVIR PREPACK PO STA (13:26)
--- NOTE | 2022-06-29 13:28 | ED Physician Documentation ---
PD HPI DYSPNEA - Stated complaint Stated Complaint: C+, - Chief complaint Chief Complaint: Resp - History obtained from History obtained from: Patient - Additional information Additional information: 72-year-old gentleman with history of A. fib on Eliquis, remote DVT became symptomatic with COVID 2 days ago and tested positive at home. The sore throat is the worst for him and he has had shortness of breath but he feels like that is related to the throat more than anything else. His noted an 88% pulse oximetry at home just prior to arrival which is not corroborated in triage. Review of Systems Constitutional: reports: Chills, Myalgias, Fatigue Throat: reports: Sore throat Respiratory: reports: Dyspnea, Cough PD PAST MEDICAL HISTORY - Past Medical History Cardiovascular: Hypertension, Deep vein thrombosis, Pulmonary embolism, Atrial fibrillation Respiratory: None Neuro: None Endocrine/Autoimmune: None GI: None : None HEENT: None Psych: None Musculoskeletal: None Derm: None - Past Surgical History Past Surgical History: Yes General: Cholecystectomy Ortho: Spine surgery HEENT: Cataracts - Present Medications Home Medications: Ambulatory Orders Medication Instructions Recorded Confirmed Apixaban [Eliquis] 5 mg PO 10/25/18 Eplerenone 50 mg PO 10/25/18 Losartan/Hydrochlorothiazide 10/25/18 [Losartan-Hctz 50-12.5 mg Tab] amLODIPine [Norvasc] 5 mg PO DAILY 10/25/18 10/25/18 cephALEXin [Keflex] 500 mg PO Q6H #12 cap 12/30/20 Oxycodone HCl/Acetaminophen 1 - 2 each PO Q6H PRN #14 tablet 05/24/21 [Percocet 5-325 mg Tablet] Albuterol Sulf [Ventolin Hfa 1 - 2 puffs INH Q4HR PRN #1 inhaler 06/17/21 Inhaler] Azithromycin 250 mg PO DAILY #4 tablet 06/17/21 HYDROcod/ACETAM 5/325 [Tabiona 5/325] 1 - 2 tab PO Q6H PRN #15 tablet 06/29/22 - Allergies Allergies/Adverse Reactions: Allergies Allergy/AdvReac Type Severity Reaction Status Date / Time ketorolac [From Toradol] Allergy Anaphylaxis Verified 06/16/21 23:17 - Social History Does the pt smoke?: No Smoking Status: Never smoker Does the pt drink ETOH?: Yes Does the pt have substance abuse?: No - Immunizations Immunizations are current?: Yes - POLST Patient has POLST: No PD ED PE NORMAL - Vitals Vital signs reviewed: Yes - General General: Alert and oriented X 3, No acute distress - HEENT HEENT: Pharynx benign - Neck Neck: Supple, no meningeal sign, No bony TTP - Cardiac Cardiac: Other (Irregularly irregular) - Respiratory Respiratory: No respiratory distress, Clear bilaterally - Abdomen Abdomen: Non tender - Neuro Neuro: Alert and oriented X 3, Normal speech Results - Vitals Vitals: Vital Signs - 24 hr 06/29/22 06/29/22 12:24 14:02 Temperature 36.9 C Heart Rate 96 69 Respiratory 20 18 Rate Blood Pressure 125/73 125/67 O2 Saturation 96 97 Oxygen O2 Source Room air - Labs Labs: Laboratory Tests 06/29/22 12:33 Nasal Adenovirus (PCR) NOT DETECTED Nasal B. parapertussis DNA (PCR) NOT DETECTED Nasal Coronavir 229E PCR NOT DETECTED Nasal Coronavir HKU1 PCR NOT DETECTED Nasal Coronavir NL63 PCR NOT DETECTED Nasal Coronavir OC43 PCR NOT DETECTED Nasal Enterovir/Rhinovir PCR NOT DETECTED Nasal Influenza B PCR NOT DETECTED Nasal Influenza A PCR NOT DETECTED Nasal Parainfluen 1 PCR NOT DETECTED Nasal Parainfluen 2 PCR NOT DETECTED Nasal Parainfluen 3 PCR NOT DETECTED Nasal Parainfluen 4 PCR NOT DETECTED Nasal RSV (PCR) NOT DETECTED Nasal B.pertussis DNA PCR NOT DETECTED Nasal C.pneumoniae (PCR) NOT DETECTED Federico Human Metapneumo PCR NOT DETECTED Nasal M.pneumoniae (PCR) NOT DETECTED Nasal SARS-CoV-2 (PCR) DETECTED A PD MEDICAL DECISION MAKING - ED course ED course: 72-year-old gentleman who had an isolated low oximetry reading at home but not corroborated here but otherwise is on his third day of symptomatic COVID and would like to go ahead with antiviral therapy. Departure - Departure Disposition: 01 Home, Self Care Clinical Impression: COVID-19 Condition: Good Record reviewed to determine appropriate education?: Yes Instructions: ED Viral Syndrome Prescriptions: HYDROcod/ACETAM 5/325 [Tabiona 5/325] 1 - 2 tab PO Q6H PRN #15 tablet PRN Reason: Pain Comments: Take antiviral medication per package instructions until gone. Return for new or worsening symptoms. Discharge Date/Time: 06/29/22 14:08
[2022-06-29 13:31] LABS: B. PARAPERTUSSIS- RESP PCR PAN NOT DETECTED; B. PERTUSSIS- RESP PCR PANEL NOT DETECTED; C. PNEUMONIAE- RESP PCR PANEL NOT DETECTED; CORONAVIRUS 229E-RESP PCR NOT DETECTED; CORONAVIRUS HKU1-RESP PCR NOT DETECTED; CORONAVIRUS NL63-RESP PCR NOT DETECTED; CORONAVIRUS OC43-RESP PCR NOT DETECTED; HUMAN METAPNEUMOVIRUS NOT DETECTED; INFLUENZA A- RESP PCR PANEL NOT DETECTED; INFLUENZA B - RESP PCR PANEL NOT DETECTED; M. PNEUMONIAE- RESP PCR PANEL NOT DETECTED; PARAINFLUENZA VIRUS 1 NOT DETECTED; PARAINFLUENZA VIRUS 2 NOT DETECTED; PARAINFLUENZA VIRUS 3 NOT DETECTED; PARAINFLUENZA VIRUS 4 NOT DETECTED; RHINOVIRUS/ENTEROVIRUS NOT DETECTED; RSV- RESP PCR PANEL NOT DETECTED
[2022-06-29 13:34] LABS: SARS-CoV-2 -RESP PCR PANEL DETECTED
[2022-06-29 14:03] VITALS: BP 125/67
== END 2022-06-29 14:08 | disposition home or self-care (01) ==
LOC: ED 12:16
DX: U07.1 COVID-19 (principal)
CPT/HCPCS: 87633; 99283; A9270; J3490

== ENCOUNTER 2022-08-20 08:47 | Outpatient (CLI) | payer MEDICARE, OTHER ==
[2022-08-20 08:58] LABS: BASOPHILS # (AUTO) 0.1 10^3/uL (0.0-0.1); BASOPHILS % (AUTO) 0.8 %; EOSINOPHILS # (AUTO) 0.1 10^3/uL (0.0-0.7); EOSINOPHILS % (AUTO) 1.8 %; HCT - HEMATOCRIT 44.3 % (42.0-52.0); HGB - HEMOGLOBIN 14.5 g/dL (14.0-18.0); LYMPHOCYTES # (AUTO) 1.7 10^3/uL (1.5-3.5); LYMPHOCYTES % (AUTO) 27.3 %; MEAN CORPUSCULAR HEMOGLOBIN 31.3 pg (27.0-31.0); MEAN CORPUSCULAR HGB CONC 32.7 g/dL (32.0-36.0); MEAN CORPUSCULAR VOLUME 95.7 fL (80.0-94.0); MEAN PLATELET VOLUME 9.3 fL (7.4-11.4); MONOCYTES # (AUTO) 0.6 10^3/uL (0.0-1.0); MONOCYTES % (AUTO) 10.4 %; NEUTROPHILS # (AUTO) 3.6 10^3/uL (1.5-6.6); NEUTROPHILS % (AUTO) 59.2 %; PLT - PLATELET COUNT 222 10^3/uL (130-450); RED BLOOD COUNT 4.63 10^6/uL (4.70-6.10); RED CELL DISTRIBUTION WIDTH 13.1 % (12.0-15.0)
[2022-08-20 09:15] LABS: ALBUMIN 4.2 g/dL (3.2-5.5); ALBUMIN/GLOBULIN RATIO 1.4 (1.0-2.2); ALKALINE PHOSPHATASE 67 IU/L (42-121); ALT ALANINE AMINOTRANSFERASE 51 IU/L (10-60); AST ASPARTATE AMINOTRANSFERASE 29 IU/L (10-42); BILIRUBIN,TOTAL 0.8 mg/dL (0.2-1.0); BUN - BLOOD UREA NITROGEN 18 mg/dL (6-20); CALCIUM 9.5 mg/dL (8.5-10.3); CARBON DIOXIDE - CO2 29 mmol/L (21-32); CHLORIDE 101 mmol/L (101-111); CHOL/HDL RATIO 3.9 (<5.0); CHOLESTEROL 184 mg/dL; GFR - MDRD 74 (>89); GLUCOSE 146 mg/dL (70-100); HDL CHOLESTEROL 47 mg/dL; LDL CHOLESTEROL,CALCULATED 125 mg/dL; LDL/HDL RATIO 2.7 (<3.6); POTASSIUM 4.1 mmol/L (3.5-5.0); SODIUM 140 mmol/L (135-145); TOTAL PROTEIN 7.1 g/dL (6.7-8.2); TRIGLYCERIDES 62 mg/dL; URIC ACID 5.3 mg/dL (2.6-7.2); VLDL CHOLESTEROL 12 mg/dL
== END 2022-08-20 08:48 | disposition home or self-care (01) ==
LOC: LAB 08:47
PROVIDERS: ATTEND Internal Medicine Cardiovascular Disease
DX: I10 Essential (primary) hypertension (principal)
CPT/HCPCS: 36415; 80053; 80061; 83721; 84550; 85025

== ENCOUNTER 2023-07-24 10:20 | Emergency (ER) | payer MEDICARE, OTHER ==
[2023-07-24 10:47] VITALS: O2SAT 97
--- NOTE | 2023-07-24 13:01 | ED Physician Documentation ---
History of Present Illness - Stated complaint Stated Complaint: SORE THROAT, BODY PX, +COVID - Chief complaint Chief Complaint: General - History obtained from History obtained from: Patient - History of Present Illness Timing: Today - Additonal information Additional information: 73-year-old Lm Wyatt felt ill this morning on awakening took a COVID test and was found to be positive. He is not having significant cough he has some nasal congestion no sore throat no ear pain no muffled hearing and no shortness of breath. He is fully immunized and has had COVID a year and a half ago took some Paxlovid then and had rapid recovery he does have a history of atrial fibrillation and hypertension and he is requesting Paxlovid again today. Review of Systems Constitutional: reports: Myalgias, Fatigue, Sweats. denies: Fever Ears: denies: Ear pain Nose: reports: Congestion. denies: Rhinorrhea / runny nose Throat: denies: Sore throat Cardiac: denies: Chest pain / pressure, Palpitations Respiratory: denies: Dyspnea GI: denies: Nausea, Vomiting, Constipation, Diarrhea : denies: Dysuria, Frequency PD PAST MEDICAL HISTORY - Past Medical History Past Medical History: Yes Cardiovascular: Hypertension, Deep vein thrombosis, Pulmonary embolism, Atrial fibrillation Respiratory: None Neuro: None Endocrine/Autoimmune: None GI: None : None HEENT: None Psych: None Musculoskeletal: None Derm: None - Past Surgical History Past Surgical History: Yes General: Cholecystectomy Ortho: Spine surgery Neuro: Other HEENT: Cataracts - Present Medications Home Medications: Ambulatory Orders Medication Instructions Recorded Confirmed Apixaban [Eliquis] 5 mg PO BID 10/25/18 07/24/23 Eplerenone 150 mg PO DAILY 10/25/18 07/24/23 Losartan/Hydrochlorothiazide 1 tab ORAL DAILY 10/25/18 07/24/23 [Losartan-Hctz 50-12.5 mg Tab] amLODIPine [Norvasc] 5 mg PO DAILY 10/25/18 07/24/23 Albuterol Sulf [Ventolin Hfa 1 - 2 puffs INH Q4HR PRN #1 inhaler 06/17/21 07/24/23 Inhaler] Colchicine 0.6 mg PO DAILY 07/24/23 07/24/23 Nirmatrelvir/Ritonavir [Paxlovid 1 each PO BID #10 tab 07/24/23 300-100 mg Dose Pack] allopurinoL [Zyloprim] 100 mg PO BID 07/24/23 07/24/23 carvediloL [Coreg] 80 mg PO DAILY 07/24/23 07/24/23 - Allergies Allergies/Adverse Reactions: Allergies Allergy/AdvReac Type Severity Reaction Status Date / Time ketorolac [From Toradol] Allergy Anaphylaxis Verified 07/24/23 10:36 - Social History Does the pt smoke?: No Smoking Status: Former smoker Does the pt drink ETOH?: Yes Does the pt have substance abuse?: No - Immunizations Immunizations are current?: Yes - POLST Patient has POLST: No PD ED PE NORMAL - Vitals Vital signs reviewed: Yes (normal ) - General General: Alert and oriented X 3, No acute distress, Well developed/nourished - HEENT HEENT: Atraumatic, PERRL, EOMI, Ears normal, Moist mucous membranes, Pharynx benign, Dentition benign - Neck Neck: Supple, no meningeal sign, No bony TTP - Cardiac Cardiac: RRR, No murmur - Respiratory Respiratory: No respiratory distress, Clear bilaterally - Abdomen Abdomen: Soft, Non tender - Back Back: No CVA TTP, No spinal TTP - Derm Derm: Normal color, Warm and dry, No rash - Extremities Extremities: No deformity, No edema - Neuro Neuro: Alert and oriented X 3, automated weaver 2-12 intact, No motor deficit, No sensory deficit, Normal speech Eye Opening: Spontaneous Motor: Obeys Commands Verbal: Oriented GCS Score: 15 - Psych Psych: Normal mood, Normal affect Results - Vitals Vitals: Vital Signs - 24 hr 07/24/23 07/24/23 07/24/23 10:37 11:42 13:04 Temperature 36.4 C L 37 C 36.9 C Heart Rate 75 77 73 Respiratory 16 16 16 Rate Blood Pressure 126/76 149/83 H 138/70 H O2 Saturation 97 97 97 Oxygen O2 Source Room air PD Medical Decision Making - ED course Complexity details: considered differential, d/w patient ED course: Patient with COVID requesting Paxlovid has successfully treated previously he does not have any evidence of thrombocytopenia. Departure - Departure Disposition: 01 Home, Self Care Clinical Impression: COVID Condition: Stable Instructions: Flu and Cold: Nutrition, Prevention and Treatment Tips Follow-Up: William Mann MD [Primary Care Provider] - Prescriptions: Nirmatrelvir/Ritonavir [Paxlovid 300-100 mg Dose Pack] 1 each PO BID #10 tab Forms: PCP List Discharge Date/Time: 07/24/23 13:08
[2023-07-24 13:13] VITALS: BP 138/70
== END 2023-07-24 13:08 | disposition home or self-care (01) ==
LOC: ED 10:20
DX: U07.1 COVID-19 (principal); R05.9 Cough, unspecified; R09.81 Nasal congestion; M79.10 Myalgia, unspecified site; R53.83 Other fatigue; R61 Generalized hyperhidrosis; Z87.891 Personal history of nicotine dependence
CPT/HCPCS: 99282; 99283

== ENCOUNTER 2023-08-20 14:26 | Outpatient (CLI) | payer MEDICARE, OTHER ==
[2023-08-20 14:35] LABS: HCT - HEMATOCRIT 46.4 % (42.0-52.0); MEAN CORPUSCULAR HGB CONC 32.3 g/dL (32.0-36.0); MEAN CORPUSCULAR VOLUME 95.9 fL (80.0-94.0); MEAN PLATELET VOLUME 9.5 fL (7.4-11.4); RED BLOOD COUNT 4.84 10^6/uL (4.70-6.10); RED CELL DISTRIBUTION WIDTH 12.9 % (12.0-15.0); WHITE BLOOD COUNT 6.7 x10^3/uL (4.8-10.8)
[2023-08-20 15:12] LABS: ALBUMIN 4.4 g/dL (3.2-5.5); ALBUMIN/GLOBULIN RATIO 1.7 (1.0-2.2); BILIRUBIN,TOTAL 1.1 mg/dL (0.2-1.0); CALCIUM 9.7 mg/dL (8.5-10.3); POTASSIUM 4.4 mmol/L (3.5-4.5)
== END 2023-08-20 14:27 | disposition home or self-care (01) ==
LOC: LAB 14:26
PROVIDERS: ATTEND Internal Medicine Cardiovascular Disease
DX: I48.21 Permanent atrial fibrillation (principal); M1A.4790 Other secondary chronic gout, unspecified ankle and foot, without tophus (tophi); I15.2 Hypertension secondary to endocrine disorders
CPT/HCPCS: 36415; 80053; 85027

== ENCOUNTER 2023-11-18 12:07 | Outpatient (CLI) | payer MEDICARE, OTHER | END 2023-11-18 12:08 | disposition home or self-care (01) | LOC: LAB 12:07 | PROVIDERS: ATTEND Registered Nurse | DX: Z08 Encounter for follow-up examination after completed treatment for malignant neoplasm (principal); Z85.46 Personal history of malignant neoplasm of prostate | CPT/HCPCS: 36415; 84153; 84154 ==